=== PATIENT | male | born 1990 | race Caucasian/White ===

== ENCOUNTER 2021-04-28 09:33 | Emergency (ER) | payer OTHER, SELFPAY ==
--- NOTE | ~2021-04-28 | XR_ITS ---
EXAMINATION: XR chest 2V DATE: 04/28/2021 10:09 INDICATION: Chest pain TECHNIQUE: PA and lateral views of the chest are obtained. COMPARISON: None available FINDINGS: There are patchy bilateral airspace opacities, right greater than left. There is no pleural effusion or pneumothorax. The cardiomediastinal silhouette is normal. The visualized bones and soft tissues are unremarkable. IMPRESSION: 1. Patchy bilateral airspace opacities, likely pneumonia. Reviewed, dictated and finalized at location A. E REPAIRER [employer]
[2021-04-28 09:40] VITALS: BP 135/76; PULSE 76; RESP 16; TEMP 36.3; O2SAT 100
--- NOTE | 2021-04-28 09:40 | ECG_ITS ---
Measurements Intervals [place] Rate: 72 P: -6 MT: 136 QRS: 75 QRSD: 92 T: 53 QT: 356 QTc: 391 Interpretive Statements SINUS RHYTHM BASELINE ARTIFACT- I, III, AVL NORMAL ECG Electronically Signed On 04-28-2021 13:15:11 CRAFT WORKER by Milton Whitfield D.O.
[2021-04-28 10:03] LABS: Basophils Percent Auto 0.5 % (0.2-1.2); Eosinophils Absolute Auto 0.3 K/mm3 (0-0.3); Hemoglobin 13.7 g/dL (14.0-18.0); Immature Granulocyte Absolute 0.04 K/mm3 (0.00-0.031); Immature Granulocyte Percent A 0.7 % (0-0.5); Lymphocytes Absolute Auto 1.45 K/mm3 (0.9-3.2); Lymphocytes Percent Auto 24.2 % (18.3-44.2); Mean Corpuscular HGB Conc 31.9 g/dl (32-36); Mean Corpuscular Volume 94.1 fl (80-100); Mean Platelet Volume 9.4 fl (7.4-10.4); Monocytes Absolute Auto 0.7 K/mm3 (0.1-0.6); Monocytes Percent Auto 11.8 % (2.6-8.5); Neutrophils Absolute Auto 3.5 K/mm3 (1.3-6.7); Neutrophils Percent Auto 57.8 % (45.5-73.1); Platelet Count Result 258 k/mm3 (150-375); Red Blood Count 4.57 M/mm3 (4.6-6.20); Red Cell Distribution Width 13.2 % (11.5-14.5)
[2021-04-28 10:21] LABS: Alanine Aminotransferase 27 U/L (4-50); Albumin Level 4.7 g/dL (3.5-5.1); Alkaline Phosphatase 64 U/L (38-126); Anion Gap 7 mmol/L (8-16); Aspartate Amino Transferase 33 U/L (17-59); Blood Urea Nitrogen 17 mg/dL (9-20); Calcium 9.4 mg/dL (8.4-10.2); Carbon Dioxide 28 mmol/L (22-30); Chloride 101 mmol/L (98-107); Estimated CRCL calculation 134 ml/min; Estimated Glomerular Filt Rate > 60; Glucose 74 mg/dL (65-110); Lipase 45 U/L (23-300); Potassium 4.1 mmol/L (3.4-5.0); Sodium 136 mmol/L (137-145)
[2021-04-28 10:23] LABS: Partial Thromboplastin Time 29.2 SECONDS (22.3-36.8)
[2021-04-28 10:30] LABS: Troponin I < 0.012 ng/mL (0.000-0.034)
[2021-04-28 12:29] VITALS: BP 126/69; PULSE 83; RESP 16; O2SAT 99
--- NOTE | 2021-04-28 12:38 | ED.CHESTPAIN ---
HPI - Chest Pain General Chief Complaint: Chest Pain Stated Complaint: chest burning and pain Time Seen by Provider: 04/28/21 12:25 Source: patient History of Present Illness HPI narrative: 31-year-old male with no significant past medical history presented to the emergency department for evaluation of 24 hours chest pain. Patient states he was at work yesterday and had onset of a left-sided chest pain that he describes as a throbbing. Patient denies any radiation of this pain. Patient denies any associated arm or back pain. Patient denies any associated shortness of breath. Patient states the pain has been pretty persistent but has been intermittent. Patient denies any worsening of the pain with deep inspiration. Patient have has had Covid shot and booster. Patient received his Motrin and posterior . Patient states over the course of the weekend he did have some mild fatigue. Patient attributed this to his booster shot. MD complaint: chest pain Related Data Allergies Allergy/AdvReac Type Severity Reaction Status Date / Time No Known Allergies Allergy Verified 04/28/21 09:47 Review of Systems Review of Systems: CONSTITUTIONAL: Denies fever, chills, or sweats. EYES: Denies visual changes, redness, or discharge. ENT: Denies rhinorrhea, congestion, sore throat, or otalgia. CARDIOVASCULAR: Left-sided throbbing chest pain, nonradiation RESPIRATORY: Denies cough or dyspnea. GASTROINTESTINAL: Denies abdominal pain, nausea, vomiting, or diarrhea. GENITOURINARY: Denies dysuria or hematuria. MUSCULOSKELETAL: Denies back pain, joint pain, or myalgia. NEUROLOGIC: Denies headache, numbness, or weakness. Exam Narrative: APPEARANCE: Well appearing, no pain in distress, well-nourished. Head normocephalic atraumtaic. EYES: PERRLA/EOMI, conjunctivae very clear. NOSE: Normal no drainage EARS:TMS clear Hattie Dickey, with good light reflex. THROAT: Pharynx clear, no exudate. NECK: Supple. No adenopathy, no masses. RESPIRATORY: Airway patent, repsirations nonlabored. Clear to auscultation bilaterally, no rales, rhonchi, wheezing. CARDIOVASCULAR: Regular rate and rhythm without murmurs rubs or gallops. ABDOMINAL: Soft, nontender, nondistended, no hepatosplenomegally MUSCULOSKELETAl: Moves all extremities. Strenght/ROM intact, No edema, No calf tenderness. NEURO: Alert. Cranial nerves II through XII intact. Good gait. Good coordination SKIN:: Warm, dry. Normal Color PSYCHIATRIC: Normal affect/mood, normal interaction with parents. Course Course Emergency Course: Patient was updated on the results of his EKG, chest x-ray and labs. Covid testing was ordered at time of discharge. Chest x-ray did show evidence of infiltrate concerning for bacterial pneumonia and patient was started on antibiotics. Patient's vital signs were stable and patient is suitable for discharge to home. Patient was comfortable with this plan and was advised and on reasons to return to the emergency department. Vital Signs Vital signs: Vital Signs Temperature 97.4 F L 04/28/21 09:40 Pulse Rate 76 04/28/21 09:40 Respiratory Rate 16 04/28/21 09:40 Blood Pressure 135/76 04/28/21 09:40 Pulse Oximetry 100 04/28/21 09:40 Temperature 97.4 F L 04/28/21 09:40 Pulse Rate 70 04/28/21 13:53 Respiratory Rate 17 04/28/21 13:53 Blood Pressure 111/72 04/28/21 13:53 Pulse Oximetry 98 04/28/21 13:53 MDM - Chest Pain Differential Diagnosis Differential diagnosis: Likely costochondritis and chest pain; Unlikely pneumothorax, stable angina and atypical chest pain Lab Data Attestation: I reviewed the patient's lab results. Result diagrams: 04/28/21 09:51 04/28/21 09:52 Labs: Lab Results 04/28/21 04/28/21 04/28/21 Range/Units 09:51 09:51 09:52 WBC 6.0 (4.5-10.0) K/mm3 RBC 4.57 L (4.6-6.20) M/mm3 Hgb 13.7 L (14.0-18.0) g/dL Hct 43.0 (42.0-52.0) % MCV 94.1 (80-100) fl MCH 30.0 (26-34)
[2021-04-28 13:20] VITALS: PULSE 70; RESP 16; O2SAT 99
[2021-04-28 13:53] VITALS: BP 111/72; PULSE 70; RESP 17; O2SAT 98
[2021-04-28 14:46] LABS: Troponin I < 0.012 ng/mL (0.000-0.034)
[2021-04-29 20:26] LABS: SARS-CoV-2 RNA PCR Negative
== END 2021-04-28 13:55 | disposition home or self-care (01) ==
PROVIDERS: Emergency Medicine; Emergency Provider Emergency Medicine; PCP Family Medicine
DX: J18.9 Pneumonia, unspecified organism (principal); Z20.822 Contact with and (suspected) exposure to COVID-19
CPT/HCPCS: 36415; 71046; 80053; 83690; 84484; 85025; 85610; 85730; 93005; 99284; C9803; U0003; U0005

== ENCOUNTER 2021-05-01 04:34 | Emergency (ER) | payer OTHER, SELFPAY ==
[2021-05-01] VITALS (20 sets, daily range): BP systolic 102–123; BP diastolic 69–87; PULSE 61–76; RESP 10–22; TEMP 36.3; O2SAT 96–100
--- NOTE | ~2021-05-01 | XR_ITS ---
EXAMINATION: XR chest 2V DATE: 05/01/2021 05:01 INDICATION: Chest tightness. TECHNIQUE: Frontal and lateral views of the chest were obtained. COMPARISON: Chest 2 views 04/28/2021 FINDINGS: The chest demonstrates clear lungs without pneumonia, pleural effusion, or pneumothorax. Th e heart size is normal. IMPRESSION: 1. No acute cardiopulmonary disease. Reviewed, dictated and finalized at location A. APPLICATIONS MANAGER
--- NOTE | 2021-05-01 04:39 | ECG_ITS ---
Measurements Intervals [place] Rate: 65 P: 8 MN: 135 QRS: 71 QRSD: 88 T: 53 QT: 364 QTc: 379 Interpretive Statements SINUS RHYTHM NORMAL ECG Electronically Signed On 05-01-2021 8:13:15 TECHNICAL INSPECTOR by Milton Whitfield D.O.
[2021-05-01 04:59] LABS: Basophils Percent Auto 0.7 % (0.2-1.2); Eosinophils Absolute Auto 0.2 K/mm3 (0-0.3); Eosinophils Percent Auto 3.1 % (0-4.4); Hematocrit 42.1 % (42.0-52.0); Hemoglobin 13.7 g/dL (14.0-18.0); Immature Granulocyte Absolute 0.03 K/mm3 (0.00-0.031); Immature Granulocyte Percent A 0.5 % (0-0.5); Lymphocytes Absolute Auto 1.72 K/mm3 (0.9-3.2); Lymphocytes Percent Auto 28.3 % (18.3-44.2); Mean Corpuscular HGB Conc 32.5 g/dl (32-36); Mean Corpuscular Hemoglobin 30.4 pg (26-34); Mean Corpuscular Volume 93.6 fl (80-100); Mean Platelet Volume 9.1 fl (7.4-10.4); Monocytes Absolute Auto 0.8 K/mm3 (0.1-0.6); Monocytes Percent Auto 13.8 % (2.6-8.5); Neutrophils Absolute Auto 3.3 K/mm3 (1.3-6.7); Neutrophils Percent Auto 53.6 % (45.5-73.1); Platelet Count Result 268 k/mm3 (150-375); Red Cell Distribution Width 12.7 % (11.5-14.5); White Blood Count 6.1 K/mm3 (4.5-10.0)
[2021-05-01 05:12] LABS: INR 0.9; Prothrombin Time 12.4 Seconds (11.1-14.7)
[2021-05-01 05:13] LABS: Alanine Aminotransferase 21 U/L (4-50); Albumin Level 4.3 g/dL (3.5-5.1); Alkaline Phosphatase 65 U/L (38-126); Anion Gap 8 mmol/L (8-16); Aspartate Amino Transferase 24 U/L (17-59); Bilirubin,Total 1.3 mg/dL (0.2-1.3); Blood Urea Nitrogen 17 mg/dL (9-20); Calcium 9.3 mg/dL (8.4-10.2); Carbon Dioxide 28 mmol/L (22-30); Chloride 104 mmol/L (98-107); Estimated CRCL calculation 134 ml/min; Estimated Glomerular Filt Rate > 60; Glucose 96 mg/dL (65-110); Lipase 55 U/L (23-300); Partial Thromboplastin Time 31.7 SECONDS (22.3-36.8); Potassium 3.9 mmol/L (3.4-5.0); Sodium 140 mmol/L (137-145)
[2021-05-01 05:24] LABS: Troponin I < 0.012 ng/mL (0.000-0.034)
[2021-05-01 06:13] LABS: D Dimer 0.27 ug/mL (<0.48)
--- NOTE | 2021-05-01 06:20 | ED.CHESTPAIN ---
HPI - Chest Pain General Chief Complaint: Chest Pain <Divya Winters MD - Last Filed: 05/01/21 07:38> Stated Complaint: chest tightness <Divya Winters MD - Last Filed: 05/01/21 07:38> Time Seen by Provider: 05/01/21 05:13 <Divya Winters MD - Last Filed: 05/01/21 07:38> Source: patient, RN notes reviewed and old records reviewed <Divya Winters MD - Last Filed: 05/01/21 07:38> Mode of arrival: ambulatory <Divya Winters MD - Last Filed: 05/01/21 07:38> Limitations: no limitations <Divya Winters MD - Last Filed: 05/01/21 07:38> History of Present Illness HPI narrative: This is a 31 year old male who presents for evaluation of left anterior chest tightness. Patient states he woke up this morning and afterwards he developed left anterior chest tightness. He states this tightness has been occurring intermittently for 4 to 5 days. He was evaluated for this on 04/28/21, and he was diagnosed with pneumonia. He has normal labs and he was swabbed for covid. His covid test was negative. He was also seen by his PCP yesterday for his pain. They thought he may have pericarditis. Patient states he received his covid booster on Tuesday and he develop fever and body aches on Tuesday. Patient denies cough, vomiting, shortness of breath, diaphoresis. His pain resolved prior to my arrival in room and then he states he feels like it is 1/10. He also states tightness seems worse with laying back and sitting up. He denies leg swelling or calf pain. <Divya Winters MD - Last Filed: 05/01/21 07:38> Related Data Allergies/Adverse Reactions: Allergies Allergy/AdvReac Type Severity Reaction Status Date / Time No Known Allergies Allergy Verified 04/28/21 09:47 <Divya Winters MD - Last Filed: 05/01/21 07:38> Review of Systems Review of Systems: All systems reviewed & are unremarkable except as noted in HPI and below <Divya Winters MD - Last Filed: 05/01/21 07:38> [facility] Past Medical History Medical History: Medical History (Updated 05/01/21 @ 07:38 by Divya Winters MD) Patient denies medical problems <Divya Winters MD - Last Filed: 05/01/21 07:38> Surgical History Surgical History: Surgical History (Updated 05/01/21 @ 06:26 by Divya Winters MD) No pertinent past surgical history <Divya iWnters MD - Last Filed: 05/01/21 07:38> Social History Social History: Social History (Updated 05/01/21 @ 06:26 by Divya Winters MD) Smoking status: Never smoker <Divya Winters MD - Last Filed: 05/01/21 07:38> Exam Const: General: no acute distress and alert <Divya Winters MD - Last Filed: 05/01/21 07:38> Orientation/consciousness: patient oriented x3 <Divya Winters MD - Last Filed: 05/01/21 07:38> Eyes: EOM: EOMs intact bilaterally <Divya Winters MD - Last Filed: 05/01/21 07:38> Chest: Chest palpation & inspection: normal inspection of the chest and no tenderness <Divya Winters MD - Last Filed: 05/01/21 07:38> Resp: Effort & Inspection: normal respiratory effort and no retractions <Divya Winters MD - Last Filed: 05/01/21 07:38> Auscultation: clear to auscultation bilaterally <Divya Winters MD - Last Filed: 05/01/21 07:38> Cardio: Rate: regular rate <Divya Winters MD - Last Filed: 05/01/21 07:38> Rhythm: regular rhythm <Divya Winters MD - Last Filed: 05/01/21 07:38> Heart sounds: no murmurs <Divya Winters MD - Last Filed: 05/01/21 07:38> GI: GI Palp: Yes Soft to palpation, No Tenderness to palpation present (GI) and No Guarding due to palpation present (GI) <Divya Winters MD - Last Filed: 05/01/21 07:38> Auscultation: normal bowel sounds <Divya Winters MD - Last Filed: 05/01/21 07:38> Skin: General skin exam: normal color <Divya Winters MD - Last Filed: 05/01/21 07:38> Rashes: no rashes <Divya Winters MD - Last Filed: 05/01/21 07:38> Neur
[2021-05-01] MEDS: KETOROLAC 15 MG/ML VIAL (*BKC) IV PUSH (06:32)
[2021-05-01 08:28] LABS: Troponin I < 0.012 ng/mL (0.000-0.034)
== END 2021-05-01 09:16 | disposition home or self-care (01) ==
PROVIDERS: General Practice; Emergency Provider Emergency Medicine; PCP Family Medicine
DX: R07.89 Other chest pain (principal)
CPT/HCPCS: 36415; 71046; 80053; 83690; 84484; 85025; 85380; 85610; 85730; 93005; 96374; 99284; J1885